=== PATIENT | male | born 1970 | race Caucasian/White ===

== ENCOUNTER 2019-06-14 11:23 | Inpatient (IN) | payer MEDICARE ==
[2019-06-14] VITALS (41 sets, daily range): BP systolic 73–151; BP diastolic 36–83; Ht 185.4 cm; Wt 132.8 kg
[~2019-06-14] VITALS: Ht 185.4 cm; Wt 132.8 kg
[2019-06-14 12:32] LABS: BASOPHILS 0.1 % (0-2); EOSINOPHILS 0.1 % (0-7); HEMATOCRIT 33.6 % (42.0-54.0); HEMOGLOBIN 11.5 g/dL (13.5-17.5); IMMATURE GRANULOCYTES 0.3 % (0-5); LYMPHOCYTES 5.4 % (15-50); MCH 31.4 pg (26.0-34.0); MCHC 34.2 g/dL (31.0-37.0); MCV 91.8 fL (80.0-100.0); MEAN PLATELET VOLUME 11.1 fL (7.4-10.4); NEUTROPHILS 83.1 % (40-80); PLATELET COUNT 196 10x3/uL (130-400); RBC 3.66 10x6/uL (4.20-6.10); RDW 15.2 % (11.5-14.5); WBC 11.4 10x3/uL (4.8-10.8)
[2019-06-14 12:36] LABS: INR 1.06 (0.85-1.17); PROTIME 13.8 SECONDS (11.6-15.0)
[2019-06-14 12:48] LABS: BACTERIA FEW /hpf (NEGATIVE); BILIRUBIN NEGATIVE (NEGATIVE); EPITHELIAL CELLS 0-5 /hpf (0-5); GLUCOSE NEGATIVE (NEGATIVE); KETONE NEGATIVE (NEGATIVE); NITRITE NEGATIVE (NEGATIVE); UROBILINOGEN NORMAL (NORMAL); WHITE CELLS - URINE 0-5 /hpf (NEGATIVE)
[2019-06-14 13:03] LABS: ALBUMIN 2.5 g/dL (3.4-5.0); ALKALINE PHOSPHATASE 76 U/L (30-120); ALT (SGPT) 28 U/L (10-68); BILIRUBIN - TOTAL 0.46 mg/dL (0.2-1.3); CARBON DIOXIDE 12.1 mmol/L (21.0-32.0); CHLORIDE - SERUM 97 mmol/L (98-107); CREATININE - SERUM 13.6 mg/dL (0.6-1.3); GLUCOSE 154 mg/dL (74-106); POTASSIUM - SERUM 5.7 mmol/L (3.5-5.1); PROTEIN - SERUM 6.8 g/dL (6.4-8.2); SODIUM 139 mmol/L (136-145); THYROID STIMULATING HORMONE 1.66 uIU/mL (0.36-3.74); eGFR NON AFRICAN AMERICAN 4 mL/min (90-120)
[2019-06-14 13:04] LABS: CALC OSMOLALITY 374 mosm/kg (275-300); CALCIUM 6.8 mg/dL (8.5-10.1); UREA NITROGEN 277 mg/dL (7-18)
[2019-06-14 13:05] LABS: CKMB 10.2 U/L (0.0-3.6); CREATINE KINASE 1295 UL (21-232)
--- NOTE | 2019-06-14 13:07 | NUR ---
CRITICAL LAB CALLED CALCIUM 6.8, DR. AVI ARCHER.
--- NOTE | 2019-06-14 15:09 | NUR ---
LEVOPHED @ 8MCG CONTINUED TO FLOOR
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
--- NOTE | 2019-06-14 15:42 | NUR ---
1530 LINE PLACED INTO RIGHT IJ PT TOLERATED WELL 1540 TITRATING LEVO DOWN
[2019-06-14 16:54] LABS: % SATURATION 50 % (15-55); IRON 109 ug/dl (35-150); TOTAL IRON BIND CAPACITY 215 ug/dl (260-445); UNSAT IRON BIND CAPACITY 106 ug/dl (150-375)
--- NOTE | 2019-06-14 17:15 | NUR ---
1545 DR SMITH IN TO SEE PATIENT.. UPDATE GIVEN..D5NS HUNG AT 200 CC/HR PER DR SMITH V.O. 1700 DIALYSIS NURSE AT BEDSIDE SETTING UP FOR DIALYSIS
--- NOTE | 2019-06-14 17:23 | NUR ---
1720 MANNITOL GIVEN TO HD NURSE WITH DR INSTRUCTIONS..
--- NOTE | 2019-06-14 18:01 | NUR ---
1745 DIALYSIS IN PROGRESS BP 78/50 LEVOPHED INCREASED TO 9MCG 1800 BP 89/60 MAP 61 NO CHANGES TO LEVO
[2019-06-14 18:20] LABS: CREATINE KINASE 1213 UL (21-232); TROPONIN-I < 0.017 ng/mL (0.000-0.060)
--- NOTE | 2019-06-14 19:00 | NUR ---
PT ASSESSMENT COMPLETED AT THIS TIME, NO CHANGES NOTED FROM NURSE REPORT, PT DROWSY BUT AWAKES TO NAME, PT ON HEMODIALYSIS, MONITORING VSS, VSS ON LEVOPHED DRIP, WILL TITRATE NEEDED
--- NOTE | 2019-06-14 21:00 | NUR ---
PT RESTIGN WITH EYES CLOSED RESP EVEN AND NON-LABORED, VSS, TITRATING LEVOPHED DRIP DOWN
--- NOTE | 2019-06-14 23:00 | NUR ---
PT REASSESSMENT COMPLETED AT THIS TIME, NO CHANGES NOTED FROM PREVIOUS EXAM, VSS, TITRATING DOWN LEVOPHED, WILL MONTOIOR FOR CHANGES
--- NOTE | 2019-06-14 23:06 | NUR ---
PAGED TARA FOR RENAL FOR [facility] LABS
[2019-06-14 23:21] LABS: CKMB 7.1 U/L (0.0-3.6)
[2019-06-14 23:22] LABS: CREATINE KINASE 944 UL (21-232); TROPONIN-I < 0.017 ng/mL (0.000-0.060)
--- NOTE | 2019-06-14 23:35 | NUR ---
DR SMITH CALLED BACK AND NEW ORDER NOTED
[2019-06-15] VITALS (16 sets, daily range): BP systolic 94–133; BP diastolic 43–85
--- NOTE | 2019-06-15 01:10 | NUR ---
PT AWAKE AND ORIENTED, PT REQUESTING SOMETHING TO DRINK, PT WAS GIVEN SOME ICE WATER AND PT BRE WELL, VSS OFF LEVOPHED, WILL MONITOR FOR CHANGES
--- NOTE | 2019-06-15 03:00 | NUR ---
PT REASSESSMENT COMPLETED AT THIS TIME, PT AWEAKES TO NAME AND IS AAXO3, VSS, WILL MONITOR FOR CHANGES
[2019-06-15 03:40] LABS: BASOPHILS 0.1 % (0-2); EOSINOPHILS 0.4 % (0-7); HEMATOCRIT 34.7 % (42.0-54.0); HEMOGLOBIN 11.7 g/dL (13.5-17.5); IMMATURE GRANULOCYTES 0.3 % (0-5); LYMPHOCYTES 8.3 % (15-50); MCH 31.1 pg (26.0-34.0); MCHC 33.7 g/dL (31.0-37.0); MCV 92.3 fL (80.0-100.0); MEAN PLATELET VOLUME 11.1 fL (7.4-10.4); MONOCYTES 19.4 % (2-11); NEUTROPHILS 71.5 % (40-80); PLATELET COUNT 182 10x3/uL (130-400); RBC 3.76 10x6/uL (4.20-6.10); RDW 15.2 % (11.5-14.5); WBC 7.4 10x3/uL (4.8-10.8)
[2019-06-15 04:00] LABS: ALBUMIN 2.5 g/dL (3.4-5.0); ALKALINE PHOSPHATASE 74 U/L (30-120); ALT (SGPT) 27 U/L (10-68); BILIRUBIN - TOTAL 0.41 mg/dL (0.2-1.3); CALC OSMOLALITY 324 mosm/kg (275-300); CALCIUM 7.6 mg/dL (8.5-10.1); CHLORIDE - SERUM 108 mmol/L (98-107); CKMB 4.7 U/L (0.0-3.6); CREATINE KINASE 781 UL (21-232); CREATININE - SERUM 2.2 mg/dL (0.6-1.3); GLUCOSE 111 mg/dL (74-106); MAGNESIUM - SERUM 2.1 mg/dL (1.8-2.4); PHOSPHOROUS 5.2 mg/dL (2.5-4.9); POTASSIUM - SERUM 4.5 mmol/L (3.5-5.1); SODIUM 143 mmol/L (136-145); TROPONIN-I < 0.017 ng/mL (0.000-0.060); UREA NITROGEN 122 mg/dL (7-18); eGFR NON AFRICAN AMERICAN 34 mL/min (90-120)
--- NOTE | 2019-06-15 05:00 | NUR ---
PT RESTING WITH EYES CLOSED RESP EVEN AND NON-LABORED, VSS, WILL MONITOR FOR CHANGES
--- NOTE | 2019-06-15 06:14 | NUR ---
PT AWAKE WATCHING TV AT THIS TIME, NO DISTRESS NOTED
--- NOTE | 2019-06-15 11:05 | NUR ---
0700 REPORT RECIEVED AND CARE ASSUMED OF PATIENT.. SEE FLOW SHEET FOR ASSESMENT FINDINGS.. 0800 H2O GIVEN 0900 MELODY WITH RENAL IN TO SEE PT.. 1000 DR SMITH IN TO SEE PT UPDATE GIVEN NEW ORDERS RECIEVED 1015 REQUEST FOR BEDPAN SMALL AMOUNT OF BROWN STOOL, PT CLEANED AND EXCORIATION OF PERINEAL AREA NOTED AT THIS TIME.. DR SMITH STILL HERE AND SHOWN, PT REQUEST THAT ORDONEZ CATH BE LEFT IN FOR NOW IT IS EXTREMLY UNCOMFORTABLE. 1100 FAMILY [facility] CALLING AND UPDATE GIVEN PER PT OK.. FAMILY STATES THAT PATIENT HAS SEVERE MENTAl ISSUES, AND TAKES ALOT OF MEDICATIONS..
--- NOTE | 2019-06-15 13:48 | NUR ---
1300 PT IS SLEEPING AT THIS TIME..
--- NOTE | 2019-06-15 15:55 | NUR ---
1430 DR VALDEZ IN TO SEE PT UPDATE IS GIVEN.. 1500 OINTMENT AND POWDER APPLIED TO OPAL AREA.. ORDONEZ REMAINS IN PLACE.. 1530 ORDERS RECIEVED TO TRANSFER PATIENT TO FLOOR FROM DR VALDEZ.. ROOM 2104 OBTAINED AND REPORT CALLED PT TO BE TRANSFERED VIA WHEELCHAIR,, CONTINUE D51/2 AT 200CC/HR
--- NOTE | 2019-06-15 17:46 | NUR ---
PT ARRIVED VIA WHEELCHIAR TO ROOM. CURRENTLY IN BED RELAXING. ATE FULL SUPPER. NO COMPLAINTS OR CONCERNS. PT IS ALERT AND ORIENTED. CL IN REACH,S RX2.
--- NOTE | 2019-06-15 19:15 | NUR ---
RECEIVED REPORT, WILL ASSUME CARE OF PT, TALKING ON PHONE, DENIES ANY NEEDS AT THIS TIME, BED IS LOW, SRX2, CALL LIGHT IN REACH, WILL CONTINUE PLAN OF CARE
[2019-06-16 06:25] LABS: BASOPHILS 0.2 % (0-2); HEMATOCRIT 33.7 % (42.0-54.0); IMMATURE GRANULOCYTES 0.2 % (0-5); LYMPHOCYTES 18.4 % (15-50); MCHC 32.6 g/dL (31.0-37.0); MEAN PLATELET VOLUME 11.7 fL (7.4-10.4); MONOCYTES 15.9 % (2-11); NEUTROPHILS 64.3 % (40-80); PLATELET COUNT 200 10x3/uL (130-400); RBC 3.55 10x6/uL (4.20-6.10); RDW 15.2 % (11.5-14.5); WBC 8.9 10x3/uL (4.8-10.8)
[2019-06-16 06:37] LABS: MCV 94.9 fL (80.0-100.0)
--- NOTE | 2019-06-16 06:47 | NUR ---
I have reviewed this patient and I concur with the Shift Assessment completed by the Licensed Practical Nurse today this shift.
[2019-06-16 06:53] LABS: ALBUMIN 2.5 g/dL (3.4-5.0); ALKALINE PHOSPHATASE 70 U/L (30-120); ALT (SGPT) 29 U/L (10-68); BILIRUBIN - TOTAL 0.54 mg/dL (0.2-1.3); CALC OSMOLALITY 307 mosm/kg (275-300); CALCIUM 7.7 mg/dL (8.5-10.1); CHLORIDE - SERUM 109 mmol/L (98-107); CREATININE - SERUM 0.8 mg/dL (0.6-1.3); GLUCOSE 128 mg/dL (74-106); MAGNESIUM - SERUM 1.3 mg/dL (1.8-2.4); POTASSIUM - SERUM 4.7 mmol/L (3.5-5.1); PROTEIN - SERUM 6.1 g/dL (6.4-8.2); SODIUM 146 mmol/L (136-145); UREA NITROGEN 55 mg/dL (7-18); eGFR NON AFRICAN AMERICAN > 90 mL/min (90-120)
[2019-06-16 08:00] VITALS: BP 90/63
--- NOTE | 2019-06-16 10:13 | NUR ---
DC'D PT'S ORDONEZ PER ORDER. 1500ML OUTPUT IN BAG. PULLED 10ML FROM BALLOON. TECH TO ASSIST PT IN SHOWER.
[2019-06-16 14:03] VITALS: BP 126/69
[2019-06-16 18:27] VITALS: BP 92/71
--- NOTE | 2019-06-16 19:10 | NUR ---
ALERT AND ORIENTED X4 AND A FEW NEEDS SEEN TO BED LOW AND LOCKED AND CALL LIGHT IS WITH PT
[2019-06-16 20:51] LABS: HEMATOCRIT 34.5 % (42.0-54.0)
[2019-06-16 22:09] VITALS: BP 111/66
--- NOTE | 2019-06-16 22:26 | NUR ---
PT FOUND INCONTINANT OF BOWEL AND BLADDER COMPLETE BED CHANGE AT THIS TIME PT STATED IM TOO HOOKED UP TO GO TO REST ROOM ATTEMPTED EDUCATION AND EXPLAINED WE CAN HELP WITH THE IV LINE
[2019-06-17 00:54] VITALS: BP 129/70
[2019-06-17 04:29] LABS: BASOPHILS 0.2 % (0-2); EOSINOPHILS 1.6 % (0-7); HEMATOCRIT 35.8 % (42.0-54.0); HEMOGLOBIN 11.3 g/dL (13.5-17.5); IMMATURE GRANULOCYTES 0.2 % (0-5); LYMPHOCYTES 24.9 % (15-50); MCHC 31.6 g/dL (31.0-37.0); MEAN PLATELET VOLUME 11.4 fL (7.4-10.4); MONOCYTES 15.4 % (2-11); NEUTROPHILS 57.7 % (40-80); PLATELET COUNT 210 10x3/uL (130-400); RBC 3.65 10x6/uL (4.20-6.10); WBC 8.1 10x3/uL (4.8-10.8)
[2019-06-17 04:38] LABS: MCV 98.1 fL (80.0-100.0)
[2019-06-17 04:48] LABS: ALBUMIN 2.6 g/dL (3.4-5.0); ALKALINE PHOSPHATASE 68 U/L (30-120); ALT (SGPT) 27 U/L (10-68); BILIRUBIN - TOTAL 0.58 mg/dL (0.2-1.3); CALC OSMOLALITY 286 mosm/kg (275-300); CARBON DIOXIDE 27.9 mmol/L (21.0-32.0); CHLORIDE - SERUM 106 mmol/L (98-107); CREATININE - SERUM 0.9 mg/dL (0.6-1.3); GLUCOSE 106 mg/dL (74-106); MAGNESIUM - SERUM 1.2 mg/dL (1.8-2.4); POTASSIUM - SERUM 4.4 mmol/L (3.5-5.1); SODIUM 142 mmol/L (136-145); eGFR NON AFRICAN AMERICAN > 90 mL/min (90-120)
[2019-06-17 04:56] LABS: UREA NITROGEN 25 mg/dL (7-18)
[2019-06-17 05:05] VITALS: BP 130/81
[2019-06-17] MEDS ORDERED: CRESTOR20 MG PO (06:10)
[2019-06-17] MEDS ORDERED: LISINOPRIL20 MG PO (06:11)
[2019-06-17] MEDS ORDERED: SEROQUEL400 MG PO (06:11)
[2019-06-17] MEDS ORDERED: MOBIC7.5 MG PO (06:11)
[2019-06-17] MEDS ORDERED: XANAX1 MG PO (06:12)
[2019-06-17] MEDS ORDERED: LEXAPRO20 MG PO (06:12)
[2019-06-17] MEDS ORDERED: HYDROCODON-ACE1 EAC2 PO (06:12)
[2019-06-17] MEDS ORDERED: MAG-OXIDE400 MG PO (08:00)
--- NOTE | 2019-06-17 09:05 | MORECARE ---
CASE MANAGEMENT DISCHARGE SUMMARY PATIENT: MARTINA ZULETA UNIT: [id number] ADM DATE: 06/14/19 AGE: 49 : 70 SEX: M ROOM/BED: D.2104 AUTHOR: SANDY GREENWOOD PHYSICIAN: REFERRING PHYSICIAN: KIRSTIN CHUN MD DATE OF SERVICE: 06/17/19 Discharge Plan Patient Name: MARTINA ZULETA [facility] [facility] 1970 Planned Disposition: Home Anticipated Discharge Date: 06/17/19 Discharge Date: Expected LOS: 3 Initial Reviewer: [email or web address] Initial Review Date: 06/17/2019 Generated: 06/17/19 10:04 am Patient Name: MARTINA ZULETA Page [id number] at 0905 All edits/amendments must be made on the electronic document DICTATION DATE: 06/17/19903 RAW STOCK MACHINE FEEDER: SUKHI 06/17/19903 RPT#: [id number] DC DATE: STATUS: ADM IN [facility] [address] [place] [address] END OF REPORT
--- NOTE | 2019-06-17 09:11 | MORECARE ---
CASE MANAGEMENT DISCHARGE SUMMARY PATIENT: MARTINA ZULETA UNIT: [id number] ADM DATE: 06/14/19 AGE: 49 : 70 SEX: M ROOM/BED: D.2104 AUTHOR: KRYSTYNA,DOC PHYSICIAN: REFERRING PHYSICIAN: KIRSTIN CHUN MD DATE OF SERVICE: 06/17/19 Discharge Plan Patient Name: MARTINA ZULETA Facility: [facility]:[place] : 1970 Planned Disposition: Home Anticipated Discharge Date: 06/17/19 Discharge Date: Expected LOS: 3 Initial Reviewer: [email or web address] Initial Review Date: 06/17/2019 Generated: 06/17/19 10:10 am Comments DCP- Discharge Planning Updated by [email or web address]: Kriss Hunter on 06/17/19 8:[address] Patient Name: MARTINA ZULETA Admission Status: ER Accout number: [id number] Admission Date: 06-14-2019 : 1970 Admission Diagnosis: Attending: LAY, Current LOS: 3 Anticipated DC Date: 06-17-2019 Planned Disposition: Home Primary Insurance: MEDICAID [place] Discharge Planning Comments: CM met with patient to complete initial dc planning assessment. CM educated patient on the CM role and verbal consent given by patient to complete assessment. Patient lives at home alone. At discharge patient plans to return and feels this is a safe discharge. DC transportation - friend (Olena). States he thought an ambulance would take him home, but I informed him that he does not have a need for ambulance. He states his friend (Olena) is calling him this morning and he will tell her to take him home. CM discussed availability of home health, rehab services, and medical equipment. Patient denied known discharge needs at this time. CM will continue to follow and will assist as needed with dc plans/needs. Sheet Metal Engineer: Kriss Hunter DCPIA - Discharge Planning Initial Assessment Updated by [email or web address]: Kriss Hunter on 06/17/19 9:05 am * Is the patient Alert and Oriented? Yes * How many steps to enter\\exit or inside your home? "few" * PCP Dr. Larson in [facility] * Pharmacy [facility] * Preadmission Environment Home Alone * ADLs Independent * Equipment None * List name and contact numbers for known caregivers / representatives who currently or will assist patient after discharge: Olena - friend - unknown * Verbal permission to speak to the caregivers and representatives has been obtained from the patient. Yes * Community resources currently utilized None * Additional services required to return to the preadmission environment? No * Can the patient safely return to the preadmission environment? Yes * Has this patient been hospitalized within the prior 30 days at any hospital? No Last DP export: 06/17/19 8:04 a Patient Name: MARTINA ZULETA Page [phone] at 0911 All edits/amendments must be made on the electronic document DICTATION DATE: 06/17/19910 PRIMARY EDUCATION PROFESSOR: SUKHI 06/17/19910 RPT#: [id number] DC DATE: STATUS: ADM IN [facility] [address] [place] [address] END OF REPORT
[2019-06-17 09:31] VITALS: BP 108/60
[2019-06-17 10:08] LABS: HEPATITIS C ANTIBODY 0.6 S/CO RAT (0.0-0.9)
--- NOTE | 2019-06-17 10:18 | NUR ---
RT IJ IV REMOVED WITH CATHETER TIP INTACT. HELD PRESSURE FOR 5MIN, PLACED 4X4 AND TEGADERM TO SITE. INSTRUCTED PT TO LAY FLAT FOR 10MIN. PT DENIES ANY NEEDS AT THIS TIME.
--- NOTE | 2019-06-17 12:22 | NUR ---
PT STATES HE USZES [facility] NOT [facility]. MESSAGED LEFT ON [facility] VOICEMAIL FOR MAGNESIUM SCRIPT.
[2019-06-17 12:23] VITALS: BP 109/60
--- NOTE | 2019-06-17 12:28 | NUR ---
RIGHT AC 20G IV DC'D WITH CATH INTACT. DISCHARGE INSTRUCTIONS GIVEN TO PT. PT STATES HE HAS NO FURTHER QUESTIONS. CHART COPY SIGNED.
--- NOTE | 2019-06-17 12:29 | NUR ---
PT STATES HIS GIRLFRIEND IS ON HER WAY TO GET HIM AND SHE IS GOING TO CALL WHEN SHE GETS HERE.
--- NOTE | 2019-06-17 13:09 | EC ---
PATIENT:MARTINA ZULETA DATE OF SERVICE: 06/14/19 SEX: M MEDICAL RECORD: [id number] DATE OF : [birth year] LOCATION:D.M2 D.210 AGE OF PATIENT: 49 ADMISSION DATE: 06/14/19 REFERRING PHYSICIAN: INTERPRETING PHYSICIAN: JAMES GONZALES MD ECHOCARDIOGRAM REPORT ECHO CHARGES 4 ECHO COMPLETE Date: 06/16/19 CLINICAL DIAGNOSIS: IV DRUG USE - R/O VEGETATION ECHOCARDIOGRAPHIC MEASUREMENTS (adult normal given) AC root (d.<3.7cm) 3.6 cm LV Septum d (<1.2 cm> 1.4 cm Valve Excursion 2.4 cm LV Septum (systole) 1.7 cm Left Atria (s.<4.0cm> 4.3 cm LVPW d(<1.2cm) 1.3 cm RV (d.<2.3cm) 3.4 cm LVPW (sytole) 1.8 cm LV diastole(<5.6CM) 6.1 cm MV E-F(>70mm/sec) cm LV systole 4.2 cm LVOT Diameter 2.3 cm MV exc.(>10mm) cm Est.ejection fraction (50-75%) % DOPPLER: LVIT cm/sec A 74.0 cm/sec E 53.0 cm/sec LA cm/sec RVSP 24.3 mmHg LVOT 108 cm/sec AOP1/2T m/s Asc. Ao 188 cm/sec RVOT 68.0 cm/sec RA cm/sec PA 128 cm/sec AV Gradient Peak 14.1 mmHg AV Mean 8.3 mmHg AV Area 2.2 cm MV Gradient Peak 3.2 mmHg MV Mean 1.3 mmHg MV Area cm COMMENTS: Inside Upholsterer: Godfrey MILLEROE Blast Furnace Helper: 3 Dr. Rodarte TAPE# PACS Pericardial Effusion N DATE OF SERVICE: Adequate 2D, color flow imaging, spectral Doppler, and M-Mode. LVH is present. LV internal dimensions are normal. Wall motion is normal. EF is greater than or equal to 55%. Aortic valve is tricuspid. No evidence of stenosis by Doppler interrogation. Left atrium is mildly dilated at 4.3 cm. Mitral valve shows no prolapse. Trace MR. Right-sided chamber is grossly normal. Trace TR. No evidence of vegetation seen in all 4 cardiac valves. ECHOCARDIOGRAM REPORT [id number] MARTINA ZULETA TRANSINT:[id number] Voice Confirmation ID: [id number] DOCUMENT ID: [id number] JAMES GONZALES MD at 1309 CC: [id number] DICTATION DATE: 06/16/19 1111 FLOOR SURFACER: 06/16/19 1152 ADM IN [facility] [address] [id number]
--- NOTE | 2019-06-17 14:30 | NUR ---
I have reviewed this patient and I concur with the Shift Assessment completed by the Licensed Practical Nurse today this shift.
--- NOTE | 2019-06-17 17:10 | NUR ---
PT TAKENO UT VIA WC WITH ALL BELONGINGS AND LEFT WITH FRIEND IN PERSONAL VEHICLE.
[2019-06-18 04:07] LABS: HEPATITIS BE ANTIGEN Negative (Negative)
[2019-06-18 13:09] LABS: HEPATITIS BE ANTIBODY Negative (Negative)
--- NOTE | 2019-06-18 16:44 | MORECARE ---
CASE MANAGEMENT DISCHARGE SUMMARY PATIENT: MARTINA ZULETA UNIT: [id number] ADM DATE: 06/14/19 AGE: 49 : 70 SEX: M ROOM/BED: D.2104 AUTHOR: KRYSTYNA,DOC PHYSICIAN: REFERRING PHYSICIAN: KIRSTIN CHUN MD DATE OF SERVICE: 06/18/19 Discharge Plan Patient Name: MARTINA ZULETA Facility: [facility]:[place] : 1970 Planned Disposition: Home Anticipated Discharge Date: 06/17/19 Discharge Date: 06/17/2019 Expected LOS: 3 Initial Reviewer: [email or web address] Initial Review Date: 06/17/2019 Generated: 06/18/19 5:43 pm Comments DCP- Discharge Planning Updated by [email or web address]: Kriss Hunter on 06/17/19 8:[address] Patient Name: MARTINA ZULETA Admission Status: ER Accout number: [id number] Admission Date: 06-14-2019 : 1970 Admission Diagnosis: Attending: LAY, Current LOS: 3 Anticipated DC Date: 06-17-2019 Planned Disposition: Home Primary Insurance: MEDICAID [place] Discharge Planning Comments: CM met with patient to complete initial dc planning assessment. CM educated patient on the CM role and verbal consent given by patient to complete assessment. Patient lives at home alone. At discharge patient plans to return and feels this is a safe discharge. DC transportation - friend (Olena). States he thought an ambulance would take him home, but I informed him that he does not have a need for ambulance. He states his friend (Olena) is calling him this morning and he will tell her to take him home. CM discussed availability of home health, rehab services, and medical equipment. Patient denied known discharge needs at this time. CM will continue to follow and will assist as needed with dc plans/needs. Fisher Seal: Kriss Hunter DCPIA - Discharge Planning Initial Assessment Updated by [email or web address]: Kriss Hunter on 06/17/19 9:05 am * Is the patient Alert and Oriented? Yes * How many steps to enter\\exit or inside your home? "few" * PCP Dr. Larson in [facility] * Pharmacy [facility] * Preadmission Environment Home Alone * ADLs Independent * Equipment None * List name and contact numbers for known caregivers / representatives who currently or will assist patient after discharge: Olena - friend - unknown * Verbal permission to speak to the caregivers and representatives has been obtained from the patient. Yes * Community resources currently utilized None * Additional services required to return to the preadmission environment? No * Can the patient safely return to the preadmission environment? Yes * Has this patient been hospitalized within the prior 30 days at any hospital? No Last DP export: 06/17/19 8:11 a Patient Name: MARTINA ZULETA Page [id number] at 1644 All edits/amendments must be made on the electronic document DICTATION DATE: 06/18/191642 DRAWING MACHINE OPERATOR: SUKHI 06/18/191642 RPT#: [id number] DC DATE:06/17/19 STATUS: DIS IN [facility] [address] [place] [address] END OF REPORT
--- NOTE | 2019-06-19 08:01 | OP ---
PATIENT NAME: MARTINA ZULETA MEDICAL RECORD: [id number] :70 LOCATION:D.M2 D.2104 ADMISSION DATE:06/14/19 SURGEON: COLUMBA HUYNH MD DATE OF OPERATION: 06/14/2019 PREOPERATIVE DIAGNOSES: 1. Acute renal failure. 2. Rhabdomyolysis. 3. Methamphetamine and other drug use. POSTOPERATIVE DIAGNOSES: 1. Acute renal failure. 2. Rhabdomyolysis. 3. Methamphetamine and other drug use. PROCEDURE: Right IJ 12.5 cm Trialysis catheter placement. SURGEON: Columba Huynh MD REPORT OF PROCEDURE: The patient's right neck and chest were prepped and draped in sterile fashion. A 5 cc of 1% lidocaine with epinephrine was infused into the surrounding tissues. Using ultrasound guidance, a needle was used to cannulate the right internal jugular vein and a guidewire was advanced with ease. Over this wire, a dilator was placed followed by the Trialysis catheter. This catheter aspirated nonpulsatile dark blood and flushed easily in all 3 ports. This was sutured into place with 4-0 nylon and dressed appropriately. COMPLICATIONS: None. CONDITION: Stable. ANESTHESIA: Local. BLOOD LOSS: Minimal. Procedure done in the ICU at the bedside. TRANSINT:[id number] Voice Confirmation ID: [id number] DOCUMENT ID: [id number] COLUMBA HUYNH MD at 0801 CC: [id number] DICTATION DATE: 06/14/19 1532 COMPOSITION FLOOR SETTER: 06/14/19 1537 DIS IN 06/17/19 [id number] [place] [address]
== END 2019-06-17 17:28 | disposition home or self-care (01) | DRG 557 ==
LOC: D.ER 11:23 → D.M2 14:18 → D.ICU 14:18 → D.M2 06-15 16:25
PROVIDERS: Family Medicine; Internal Medicine Nephrology; ADMIT Family Medicine; ATTEND Family Medicine
DX: M62.82 Rhabdomyolysis (principal); N17.0 Acute kidney failure with tubular necrosis; F17.203 Nicotine dependence unspecified, with withdrawal; F15.10 Other stimulant abuse, uncomplicated; F11.10 Opioid abuse, uncomplicated; E87.5 Hyperkalemia